=== PATIENT | female | born 1955 | race Caucasian/White ===

== ENCOUNTER 2019-11-16 13:14 | Emergency (ER) | payer OTHER ==
[~2019-11-16] VITALS: Ht 157.5 cm; Wt 72.6 kg
[~2019-11-16 13:14] MED LIST: ASPI81CH PO; CEPH500 PO; FISH1000 PO; INSLIS75I SC; METO50ER PO; MULTI VITAMIN1 EACH PO; MULVITA PO; Metoprolol Succ25 MG PO; OXYACE5T PO; [UNRECOGNIZED DRUG - OTHER]
[2019-11-16 13:35] LABS: Source, Urine Clean Catch
[2019-11-16 13:39] LABS: Bilirubin, Urine Neg (Neg); Blood, Urine 1+ (Neg); Glucose Qualitative, Urine 4+ (Neg); Ketones, Urine Neg (Neg); Leukocyte Esterase, Urine Neg (Neg); Nitrite, Urine Neg (Neg); Protein, Urine 4+ (Neg); Specific Gravity, Urine 1.015 (1.003-1.022); Urobilinogen, Urine NORM (Normal); pH, Urine 6.5 (5.0-8.0)
[2019-11-16 13:46] LABS: Appearance, Urine Clear (Clear); Color, Urine Yellow (P-Yellow)
[2019-11-16 13:48] LABS: Bacteria Few /hpf; Red Blood Cells, Urine 0-2 /hpf (0-2); Squamous Epithelial Cells Rare /hpf (Few); White Blood Cells, Urine Rare /hpf (0-5)
[2019-11-16] MEDS ORDERED: HYDR1TAB94 PO (14:34)
[2019-11-16] MEDS ORDERED: IBUP800 PO (14:34)
== END 2019-11-16 14:42 | disposition home or self-care (01) ==
LOC: ER 13:14
PROVIDERS: Physician Assistant
DX: M43.16 Spondylolisthesis, lumbar region (principal); M54.16 Radiculopathy, lumbar region; E11.9 Type 2 diabetes mellitus without complications; Z79.82 Long term (current) use of aspirin; Z79.899 Other long term (current) drug therapy; Z87.891 Personal history of nicotine dependence
CPT/HCPCS: 72100; 81001; 82947; 99283-25

== ENCOUNTER 2023-06-19 18:15 | Emergency (ER) | payer MEDICARE ==
[~2023-06-19] VITALS: Ht 157.5 cm; Wt 74.8 kg
[~2023-06-19 18:15] MED LIST changes: +HYDR1TAB94 PO; +IBUP800 PO
[2023-06-19 18:27] VITALS: BP 173/108
[2023-06-19] MEDS ORDERED: BENZ100A PO (23:10)
== END 2023-06-19 18:40 | disposition home or self-care (01) ==
LOC: ER 18:15
DX: J40 Bronchitis, not specified as acute or chronic (principal); R05.3 Chronic cough; E11.22 Type 2 diabetes mellitus with diabetic chronic kidney disease; N18.9 Chronic kidney disease, unspecified; Z87.891 Personal history of nicotine dependence; Z79.82 Long term (current) use of aspirin
CPT/HCPCS: 99284

== ENCOUNTER 2023-12-04 09:36 | Emergency (ER) | payer MEDICARE ==
[~2023-12-04] VITALS: Ht 157.5 cm; Wt 70.3 kg
[~2023-12-04 09:36] MED LIST changes: +BENZ100A PO
[2023-12-04 09:54] VITALS: BP 154/81
[2023-12-04] MEDS ORDERED: Voltaren100 GM TOP (11:08)
[2023-12-04] MEDS ORDERED: LIDO700A20 TOP (11:08)
[2023-12-04] MEDS ORDERED: Robaxin750 MG PO (11:08)
== END 2023-12-04 11:10 | disposition home or self-care (01) ==
LOC: ER 09:36
DX: M54.31 Sciatica, right side (principal); E11.22 Type 2 diabetes mellitus with diabetic chronic kidney disease; N18.9 Chronic kidney disease, unspecified; Z79.82 Long term (current) use of aspirin; Z79.899 Other long term (current) drug therapy
CPT/HCPCS: 99283; A9270

== ENCOUNTER 2024-07-12 08:39 | Day surgery (SDC) | payer MEDICARE ==
[~2024-07-12] VITALS: Ht 157.5 cm; Wt 75.0 kg
[~2024-07-12 08:39] MED LIST changes: +ALBU90OI INH; +AMLO5 PO; +ATOR40TA PO; +BASAGLAR K100 UNIT/1 SC; +CALC.25 PO; +CARV6.25 PO; +FURO20 PO; +Isosorbide Dini30 MG PO; +LIDO700A20 TOP; +LOSARTAN POTAS100 M1 PO; +NITR.4SL SL; +Robaxin750 MG PO; +Voltaren100 GM TOP; +WIXELA 250-501 EAC1 IH
[2024-07-12 09:05] VITALS: BP 167/78
[2024-07-12] MEDS ORDERED: NS 250 ML IV ONE (10:04)
[2024-07-12] MEDS ORDERED: Heparin Sodium 1000 Units/ML 10ML MDV ONE (10:04)
[2024-07-12] MEDS ORDERED: FentaNYL Citrate 50 MCG/ML 2 ML Injection ONE (10:38)
[2024-07-12] MEDS ORDERED: NS 500 ML IV ONE (10:38)
[2024-07-12] MEDS ORDERED: Midazolam HCl 1MG / ML 2ML Vial ONE (10:38)
[2024-07-12] MEDS ORDERED: Ondansetron HCl 2 MG / ML 2ML Vial ONE (10:39)
[2024-07-12] MEDS ORDERED: Heparin Sodium 10,000 Units/ML 1ML MDV ONE (10:48)
--- NOTE | 2024-07-12 11:42 | NUR ---
PT BACK TO RECOVERY ROOM, AWAKE AND ALERT, SITTING UP IN RECLINER. PT C/O NAUSEA. PT GIVEN SALTINES AND SPRITE PER REQUEST. VSS. PERM CATH SITE IS SOFT, SMALL AMOUNT OF BLOOD UNDER DRESSING.
[2024-07-12 11:43] VITALS: BP 170/80
[2024-07-12 12:00] VITALS: BP 148/73
[2024-07-12 12:15] VITALS: BP 162/70
--- NOTE | 2024-07-12 12:28 | NUR ---
PT VERBALIZE D/C INSTRUCTIONS. PT CALLING SPOUSE FOR RIDE IN ABOUT 30 MIN. NAUSEA HAS RESOLVED.
[2024-07-12 12:30] VITALS: BP 150/70
[2024-07-12 12:43] VITALS: BP 134/80
== END 2024-07-12 13:10 | disposition home or self-care (01) ==
LOC: MHTC 08:39
DX: I12.0 Hypertensive chronic kidney disease with stage 5 chronic kidney disease or end stage renal disease (principal); E11.22 Type 2 diabetes mellitus with diabetic chronic kidney disease; N18.6 End stage renal disease; Z99.2 Dependence on renal dialysis; I25.10 Atherosclerotic heart disease of native coronary artery without angina pectoris; Z79.82 Long term (current) use of aspirin; Z79.899 Other long term (current) drug therapy; Z88.1 Allergy status to other antibiotic agents; Z88.8 Allergy status to other drugs, medicaments and biological substances
CPT/HCPCS: 36561; 76937; 99152; C1750; C1769; C1894; J1644; J2250; J2405; J3010; J7040; J7050

== ENCOUNTER 2024-07-13 10:29 | Emergency (ER) | payer MEDICARE ==
[~2024-07-13] VITALS: Ht 154.9 cm; Wt 74.8 kg
[2024-07-13 10:40] VITALS: BP 145/62
== END 2024-07-13 11:23 | disposition home or self-care (01) ==
LOC: ER 10:29
DX: T82.838A Hemorrhage due to vascular prosthetic devices, implants and grafts, initial encounter (principal); E11.22 Type 2 diabetes mellitus with diabetic chronic kidney disease; N18.9 Chronic kidney disease, unspecified; Z79.51 Long term (current) use of inhaled steroids; Z79.82 Long term (current) use of aspirin; Z79.899 Other long term (current) drug therapy; Z88.1 Allergy status to other antibiotic agents; Z88.8 Allergy status to other drugs, medicaments and biological substances
CPT/HCPCS: 99283

== ENCOUNTER 2025-01-10 11:13 | Emergency (ER) | payer MEDICARE ==
[~2025-01-10] VITALS: Ht 157.5 cm; Wt 81.7 kg
[~2025-01-10 11:13] MED LIST changes: +COLACE100 MG PO; +HUMULIN R100 UNIT/2 SC; -Isosorbide Dini30 MG PO; +Isosorbide Mono30 MG PO; +LIQUACEL PO; +MIRALAX17 GM PO; +NEPHRO VITAMIN0.8 MG PO; +SEVEC800 PO; +TRAM50 PO
[2025-01-10 11:55] LABS: BASOPHILS ABSOLUTE AUTO 0.08 K/mm3 (0.00-0.23); BASOPHILS PERCENT AUTO 1 % (0-2); EOSINOPHILS ABSOLUTE AUTO 0.19 K/mm3 (0.00-0.68); EOSINOPHILS PERCENT AUTO 2 % (0-6); Hematocrit 38.8 % (33.0-51.0); Hemoglobin 13.1 g/dL (11.5-16.0); IMMATURE GRAN ABSOLUTE AUTO 0.08 K/mm3 (0.00-0.10); IMMATURE GRAN PERCENT AUTO 1 % (0-1); LYMPHOCYTES ABSOLUTE AUTO 1.08 K/mm3 (0.84-5.20); LYMPHOCYTES PERCENT AUTO 9 % (21-46); MONOCYTES ABSOLUTE AUTO 1.19 K/mm3 (0.16-1.47); MONOCYTES PERCENT AUTO 10 % (4-13); Mean Corpuscular HGB 31.4 pg (26.0-34.0); Mean Corpuscular HGB Conc 33.8 g/dL (31.5-36.5); Mean Corpuscular Volume 93 fL (80-100); Mean Platelet Volume 9.9 fL (9.1-12.4); NEUTROPHILS ABSOLUTE AUTO 8.94 K/mm3 (1.96-9.15); NEUTROPHILS PERCENT AUTO 77 % (41-73); Platelet Count 332 K/mm3 (150-400); RDW Coefficient Variation 17.2 % (11.7-14.2); RDW Standard Deviation 57.7 fL (35.1-46.3); Red Blood Cell Count 4.17 M/mm3 (3.80-5.20); White Blood Cell Count 11.56 K/mm3 (4.00-11.30)
[2025-01-10 12:00] VITALS: BP 147/67
[2025-01-10 13:24] LABS: Albumin, Blood 4.6 g/dL (3.4-5.0); Albumin/Globulin Ratio 1.2 (0.8-1.8); Bilirubin, Total 0.7 mg/dL (0.1-1.0); Bun/Creatinine Ratio 9.7 (12.0-20.0); Calcium, Blood 10.5 mg/dL (8.5-10.1); Creatinine, Blood 9.44 mg/dL (0.40-1.00); Globulin, Blood 3.9 g/dL (2.2-4.0); Potassium, Blood 5.4 mmol/L (3.5-5.5); Total Protein, Blood 8.5 g/dL (6.4-8.2)
[2025-01-10] MEDS ORDERED: LOKELMA10 GM PO (16:38)
[2025-01-10] MEDS ORDERED: Sodium Zirconium Cyclosilicate 10 GM Packet PO ONE (17:00)
[2025-01-11] MEDS ORDERED: Sodium Zirconium Cyclosilicate 10 GM Packet PO SCH (09:00)
[2025-01-11] MEDS ORDERED: Sodium Zirconium Cyclosilicate 10 GM Packet PO ONE (17:00)
== END 2025-01-10 17:14 | disposition home or self-care (01) ==
LOC: ER 11:13
PROVIDERS: Emergency Medicine
DX: R41.82 Altered mental status, unspecified (principal); E11.22 Type 2 diabetes mellitus with diabetic chronic kidney disease; N18.6 End stage renal disease; Z99.2 Dependence on renal dialysis; Z79.82 Long term (current) use of aspirin; Z79.4 Long term (current) use of insulin; Z79.51 Long term (current) use of inhaled steroids; Z79.899 Other long term (current) drug therapy
CPT/HCPCS: 71045; 80053; 85025; 93005; 93010; 99285-25; A9270

== ENCOUNTER 2025-02-20 18:05 | Observation (INO) | payer MEDICARE ==
[~2025-02-20] VITALS: Ht 157.5 cm; Wt 70.3 kg
[~2025-02-20 18:05] MED LIST changes: +Carvedilol 6.25 MG Tab PO SCH; +LOKELMA10 GM PO
[2025-02-20 19:10] LABS: BASOPHILS ABSOLUTE AUTO 0.06 K/mm3 (0.00-0.23); BASOPHILS PERCENT AUTO 1 % (0-2); EOSINOPHILS ABSOLUTE AUTO 0.27 K/mm3 (0.00-0.68); EOSINOPHILS PERCENT AUTO 2 % (0-6); Hematocrit 28.5 % (33.0-51.0); Hemoglobin 9.1 g/dL (11.5-16.0); IMMATURE GRAN ABSOLUTE AUTO 0.08 K/mm3 (0.00-0.10); IMMATURE GRAN PERCENT AUTO 1 % (0-1); LYMPHOCYTES ABSOLUTE AUTO 1.08 K/mm3 (0.84-5.20); LYMPHOCYTES PERCENT AUTO 9 % (21-46); MONOCYTES ABSOLUTE AUTO 0.83 K/mm3 (0.16-1.47); MONOCYTES PERCENT AUTO 7 % (4-13); Mean Corpuscular HGB 30.8 pg (26.0-34.0); Mean Corpuscular HGB Conc 31.9 g/dL (31.5-36.5); Mean Corpuscular Volume 97 fL (80-100); Mean Platelet Volume 9.9 fL (9.1-12.4); NEUTROPHILS ABSOLUTE AUTO 10.15 K/mm3 (1.96-9.15); NEUTROPHILS PERCENT AUTO 81 % (41-73); Platelet Count 247 K/mm3 (150-400); RDW Coefficient Variation 16.4 % (11.7-14.2); RDW Standard Deviation 57.8 fL (35.1-46.3); Red Blood Cell Count 2.95 M/mm3 (3.80-5.20); White Blood Cell Count 12.47 K/mm3 (4.00-11.30)
[2025-02-20 19:35] LABS: Albumin, Blood 3.6 g/dL (3.4-5.0); Albumin/Globulin Ratio 0.9 (0.8-1.8); Bilirubin, Total 0.4 mg/dL (0.1-1.0); Bun/Creatinine Ratio 7.1 (12.0-20.0); Calcium, Blood 8.7 mg/dL (8.5-10.1); Creatinine, Blood 6.36 mg/dL (0.40-1.00); Potassium, Blood 4.5 mmol/L (3.5-5.5); Total Protein, Blood 7.6 g/dL (6.4-8.2)
[2025-02-20] MEDS ORDERED: D5W-LR 1,000 ML IV SCH (20:00)
[2025-02-20] MEDS ORDERED: CefTRIAXone Sodium 1,000 MG in NS 100 ML IV ONE (22:30)
[2025-02-20] MEDS ORDERED: Ipratropium/Albuterol SulF 2.5-0.5MG/3 ML Amp INH ONE (22:30)
[2025-02-20] MEDS ORDERED: MethylPREDNISolone Sod Succ 125 MG Vial IV ONE (22:30)
[2025-02-20] MEDS ORDERED: Azithromycin 500 MG in NS 250 ML IV ONE (22:30)
[2025-02-20] MEDS ORDERED: Ondansetron 4 MG TAB PO PRN (23:35)
[2025-02-20] MEDS ORDERED: FLU VACC TS2024-25(6MOS UP)/PF 45 MCG/0.5 ML SYRINGE IM ONE (23:35)
[2025-02-20] MEDS ORDERED: Polyethylene Glycol 3350 17 gm PO PRN (23:40)
[2025-02-20] MEDS ORDERED: Acetaminophen 325 MG TABLET PO PRN (23:40)
[2025-02-20] MEDS ORDERED: Albuterol 2.5 MG/3 ML VIAL INH PRN (23:40)
[2025-02-20] MEDS ORDERED: TraMADol HCl 50 MG Tab PO PRN (23:40)
[2025-02-20] MEDS ORDERED: Nitroglycerin 0.4 MG SUBL SL PRN (23:45)
[2025-02-20] MEDS ORDERED: Ipratropium/Albuterol SulF 2.5-0.5MG/3 ML Amp INH SCH (23:50)
[2025-02-21] VITALS (17 sets, daily range): BP systolic 103–151; BP diastolic 46–85
[2025-02-21] MEDS ORDERED: LOSA50 PO (01:22)
--- NOTE | 2025-02-21 02:04 | NUR ---
REPORT RECEIVED FROM CARLOS CHISHOLM RN AND AWAITING PT T/F TO ROOM 345.
--- NOTE | 2025-02-21 06:17 | NUR ---
ER ADMIT AND SUMMARY: PT T/F VIA GURNEY TO ROOM 345 AT 0213. SHE'S A/OX4, WAS ORIENTED TO ROOM AND CALL SYSTEM AND USES CALL LIGHT APPROPRIATELY TO SPECIFY NEEDS. SHE DENIED NEEDING PAIN MEDS DESPITE RIB FX'S S/P X2 CPR FOR PEA IN DECEMBER. PT NOW HAS PROBABLE PNM W/COARSE L.LOWER LOBE LUNG SOUNDS AND IV ABX AND NEBS RECEIVED IN ER. PE STUDY WAS NEGATIVE. SHE REPORTS SOB W/EXERTION AND SPO2 IS WNL ON 2L O2 VIA NC W/CONT BIOX INTACT. PT ON RA AT BASELINE. PT HAS A MOIST HACKING COUGH BUT SPUTUM CX STILL NEEDS COLLECTION AND PT IS AWARE. TELE WAS COMMENCED AND SHE'S NSR AT 90'S BPM. PT HAS ESRD W/HD CATH INTACT TO [facility] CONSULTING. NO ACUTE CHANGES, VSS/AFEBRILE. WILL REPORT TO DAY RN.
[2025-02-21 06:54] LABS: BASOPHILS ABSOLUTE AUTO 0.02 K/mm3 (0.00-0.23); BASOPHILS PERCENT AUTO 0 % (0-2); EOSINOPHILS PERCENT AUTO 0 % (0-6); Hematocrit 27.5 % (33.0-51.0); Hemoglobin 8.7 g/dL (11.5-16.0); IMMATURE GRAN ABSOLUTE AUTO 0.08 K/mm3 (0.00-0.10); IMMATURE GRAN PERCENT AUTO 1 % (0-1); LYMPHOCYTES ABSOLUTE AUTO 0.57 K/mm3 (0.84-5.20); LYMPHOCYTES PERCENT AUTO 5 % (21-46); MONOCYTES ABSOLUTE AUTO 0.17 K/mm3 (0.16-1.47); MONOCYTES PERCENT AUTO 2 % (4-13); Mean Corpuscular HGB 30.9 pg (26.0-34.0); Mean Corpuscular HGB Conc 31.6 g/dL (31.5-36.5); Mean Corpuscular Volume 98 fL (80-100); Mean Platelet Volume 10.2 fL (9.1-12.4); NEUTROPHILS ABSOLUTE AUTO 9.62 K/mm3 (1.96-9.15); NEUTROPHILS PERCENT AUTO 92 % (41-73); Platelet Count 230 K/mm3 (150-400); RDW Coefficient Variation 16.3 % (11.7-14.2); RDW Standard Deviation 58.1 fL (35.1-46.3); Red Blood Cell Count 2.82 M/mm3 (3.80-5.20); White Blood Cell Count 10.46 K/mm3 (4.00-11.30)
[2025-02-21 07:10] LABS: Albumin, Blood 3.1 g/dL (3.4-5.0); Anion Gap 16 mmol/L (3-11); Blood Urea Nitrogen 49 mg/dL (8-24); Bun/Creatinine Ratio 6.9 (12.0-20.0); CO2, Blood 23 mmol/L (21-32); Calcium, Blood 8.3 mg/dL (8.5-10.1); Chloride, Blood 98 mmol/L (98-108); Creatinine, Blood 7.07 mg/dL (0.40-1.00); Glomerular Filtration Rate 6 (60-); Glucose, Blood 288 mg/dL (70-99); Potassium, Blood 5.1 mmol/L (3.5-5.5); Sodium, Blood 132 mmol/L (136-145)
[2025-02-21 07:10] LABS: Percent Saturation 9.1 % (15.0-50.0)
[2025-02-21] MEDS ORDERED: Insulin Regular 100 UNIT/ML 10ML Vial SC SCH (07:30)
[2025-02-21] MEDS ORDERED: Sevelamer Carbonate 800 MG Tab PO SCH (08:30)
[2025-02-21] MEDS ORDERED: Atorvastatin 40 MG Tab PO SCH (09:00)
[2025-02-21] MEDS ORDERED: Heparin Sodium,Porcine 5,000 UNIT/0.5 ML SDV SC SCH (09:00)
[2025-02-21] MEDS ORDERED: Isosorbide Mononitrate 30 MG TABCR PO SCH (09:00)
[2025-02-21] MEDS ORDERED: Docusate Sodium 100 MG Cap PO SCH (09:00)
[2025-02-21] MEDS ORDERED: Vitamin B Cmplx/Vit C/Folic Ac 1 Tab PO SCH (09:00)
[2025-02-21] MEDS ORDERED: PredniSONE 20 MG Tab PO SCH (09:00)
[2025-02-21] MEDS ORDERED: Aspirin 81 MG Chew PO SCH (09:00)
[2025-02-21] MEDS ORDERED: Calcitriol 0.25 MCG Cap PO SCH (09:00)
[2025-02-21] MEDS ORDERED: Darbepoetin Alfa in Polysorbat 25 MCG/0.42 ML Syringe SC SCH (16:00)
[2025-02-21] MEDS ORDERED: Insulin Human Lispro 100 Units/ML 3ML Syringe SC SCH (16:30)
[2025-02-21] MEDS ORDERED: PRED20 PO (17:11)
[2025-02-21] MEDS ORDERED: AZIT500 PO (17:12)
--- NOTE | 2025-02-21 18:20 | NUR ---
DISCHARGE NOTE PT A&OX4. PT ADMITTED DUE TO ACUTE RESP FAILURE WITH HYPOXIA. RESP THERAPY TITRATED PT TO ROOM AIR. PT HAD DIALYSIS THIS AM. VSS. PT INDEPENDENT IN ROOM. PT EATS ADEQUATE. PT REPORTED NO CHEST PAIN DISCOMFORT. MEDS FAXED TO PREFERRED PHARM. PT ESCORTED OUT VIA WHEELCHAIR BY DINING ROOM HOST. PT TOOK PERSONAL BELONGINGS. TELE D/C. IV D/C. PT USED INCENTIVE SPIROMETER TODAY DURING SHIFT.
[2025-02-21] MEDS ORDERED: CefTRIAXone Sodium 1,000 MG in NS 100 ML IV SCH (21:00)
[2025-02-21] MEDS ORDERED: Insulin Glargine-Yfgn 100 Unit/mL 3 ML SYR SC SCH (21:00)
[2025-02-21] MEDS ORDERED: Azithromycin 500 MG in NS 250 ML IV SCH (21:00)
== END 2025-02-21 17:47 | disposition home or self-care (01) ==
LOC: ER 18:05 → ERHOLD 18:07 → EDBEDREQ 02-21 00:14 → EDBEDREQDT 02-21 00:14 → MEDS 02-21 00:15 → ERHOLD 02-21 00:15 → ER 02-21 00:15 → MEDS 02-21 02:27 → ERHOLD 02-21 02:27 → MEDS 02-21 17:47
PROVIDERS: Student in an Organized Health Care Education/Training Program; ADMIT Student in an Organized Health Care Education/Training Program
DX: J96.01 Acute respiratory failure with hypoxia (principal); E11.22 Type 2 diabetes mellitus with diabetic chronic kidney disease; I13.2 Hypertensive heart and chronic kidney disease with heart failure and with stage 5 chronic kidney disease, or end stage renal disease; I50.9 Heart failure, unspecified; N18.6 End stage renal disease; I25.118 Atherosclerotic heart disease of native coronary artery with other forms of angina pectoris; E78.5 Hyperlipidemia, unspecified; G47.33 Obstructive sleep apnea (adult) (pediatric); Z99.2 Dependence on renal dialysis; Z87.891 Personal history of nicotine dependence; Z88.8 Allergy status to other drugs, medicaments and biological substances; Z79.4 Long term (current) use of insulin; N25.81 Secondary hyperparathyroidism of renal origin
CPT/HCPCS: 36415; 71046; 71275; 80053; 80069; 82728; 82947; 83540; 83550; 83690; 83735; 84145; 84484; 85025; 93005; 93010; 94640; 94664; 94762; 96365; 96375; 97116; 97162; 99285-25; A9270; G0257; G0378; J0456; J0696; J0881; J1815; J2919; J7050; J7121; J7512; Q9967

== ENCOUNTER 2025-03-27 06:14 | Day surgery (SDC) | payer MEDICARE ==
[~2025-03-27 06:14] MED LIST changes: +AZIT500 PO; -Carvedilol 6.25 MG Tab PO SCH; +LOSA50 PO; +PRED20 PO
[2025-03-27] MEDS ORDERED: NS 250 ML IV SCH (06:55)
[2025-03-27 07:55] VITALS: BP 107/61
[2025-03-27 08:17] VITALS: BP 117/55
[2025-03-27 09:18] VITALS: BP 118/55
[2025-03-27 09:32] VITALS: BP 136/72
== END 2025-03-27 10:45 | disposition home or self-care (01) ==
LOC: ATC 06:14
DX: I12.0 Hypertensive chronic kidney disease with stage 5 chronic kidney disease or end stage renal disease (principal); E11.22 Type 2 diabetes mellitus with diabetic chronic kidney disease; N18.6 End stage renal disease; D63.1 Anemia in chronic kidney disease; I25.10 Atherosclerotic heart disease of native coronary artery without angina pectoris; E78.5 Hyperlipidemia, unspecified; G47.33 Obstructive sleep apnea (adult) (pediatric); Z87.891 Personal history of nicotine dependence; Z88.1 Allergy status to other antibiotic agents; Z88.8 Allergy status to other drugs, medicaments and biological substances; Z79.82 Long term (current) use of aspirin; Z79.899 Other long term (current) drug therapy
CPT/HCPCS: 36415; 36430; 86850; 86900; 86901; 86923; J7050; P9016